=== PATIENT | female | born 1985 | race Caucasian/White ===

== ENCOUNTER 2019-11-21 10:53 | Observation (INO) ==
[2019-11-21 12:05] LABS: Total Volume 24 Hour,Urine 0.96 Liters (0.60-1.60)
[2019-11-21 12:29] LABS: Protein/Creatinine Ratio,Urine 0.39 mg/mg (0.00-0.20)
[2019-11-21] MEDS ORDERED: Betamethasone Acet/SodPhos 30 MG/5 ML VIAL IM SCH (13:30)
[2019-11-21 13:51] LABS: Basophils % 0.1 %; Hemoglobin 11.1 g/dL (11.5-15.4); Immature Granulocytes % 0.8 % (0-4); Mean Corpuscular Hemoglobin 29.4 pg (28.0-33.3); Mean Platelet Volume 13.4 fL (9.4-12.4); Red Blood Count 3.77 M/mcL (3.82-4.97); Red Cell Distribution Width 13.2 % (11.5-14.5)
[2019-11-21 13:53] LABS: Hematocrit 33.6 % (35.3-44.9); Immature Platelets 14.9 % (1.1-6.1); Lymphocytes # 1.6 K/mcL (0.6-4.6); Lymphocytes % 11.4 %; Mean Corpuscular Volume 89.1 fL (83.0-100.0); Monocytes % 6.7 %; Neutrophils # 11.6 K/mcL (1.6-8.9); Platelet Count 233 K/mcL (140-400); White Blood Count 14.3 K/mcL (4.3-11.1)
[2019-11-21 14:12] LABS: Alanine Aminotransferase 12 Units/L (7-52); Aspartate Amino Transferase 23 Units/L (13-39); BUN/Creatinine Ratio 18 (6-26); Blood Urea Nitrogen 13 mg/dL (6-20); Lactate Dehydrogenase 136 Units/L (140-271); Uric Acid 7.8 mg/dL (2.3-7.6); eGFR For African Americans > 60 (> 60); eGFR For Non-African Americans > 60 (> 60)
== END 2019-11-21 15:40 | disposition home or self-care (01) ==
LOC: 1NENULAB 10:53 → LANDD 10:53 → 1NENULAB 10:57
PROVIDERS: ADMIT Advanced Practice Midwife; ATTEND Advanced Practice Midwife